=== PATIENT | male | born 1980 | race Caucasian/White ===

== ENCOUNTER 2017-07-31 13:55 | Inpatient (IN) | payer OTHER ==
[2017-07-31 16:09] LABS: BASO # 0.1 K/uL (0.0-0.2); BASO % 0.6 % (0.0-2.0); EOS % 0.1 % (0.0-4.0); HEMOGLOBIN 14.6 g/dL (12.0-18.0); LYMPH # 1.9 K/uL (1.0-4.3); LYMPH % 17.8 % (20.0-40.0); MEAN CELL VOLUME 87.9 fL (80.0-94.0); MEAN CORPUSCULAR HGB CONC 34.2 g/dL (33.0-37.0); MEAN PLATELET VOLUME 7.7 fL (7.2-11.7); MONO # 0.5 K/uL (0.0-0.8); MONO % 4.4 % (0.0-10.0); NEUT % 77.1 % (50.0-75.0); NRBC % 0.1 % (0.0-2.0); RBC 4.85 Mil/uL (4.40-5.90); RED CELL DISTRIBUTION WIDTH 13.6 % (11.5-14.5); WHITE BLOOD COUNT 10.4 K/uL (4.8-10.8)
[2017-07-31 16:26] LABS: ALB/GLOB RATIO 1.4 (1.0-2.1); ALBUMIN 4.6 g/dL (3.5-5.0); ALT/SGPT 136 U/L (21-72); AST/SGOT 213 U/L (17-59); BLOOD UREA NITROGEN 12 mg/dL (9-20); CALCIUM 8.5 mg/dl (8.6-10.4); GFR AFRICAN-AMERICAN > 60; GFR NON-AFRICAN AMERICAN > 60; LIPASE 817 U/L (23-300)
[2017-07-31] MEDS ORDERED: Iodixanol 320 MG/ML 100 ML BOTTLE IV ONE (18:04)
--- NOTE | 2017-07-31 18:11 | C.PDOC ---
History Of Present Illness 36 y/o male with h/o pancreatitis presents to ED with c/o abdominal pain for 2 weeks associated with vomiting. Also reports headache, denies trauma. Admits to drinking daily- 1 pint a day. Denies dysuria, fever, chest pain, sob, or change in sensation. Time Seen by Provider: 07/31/17 14:53 Chief Complaint (Nursing): Substance Abuse History Per: Patient History/Exam Limitations: no limitations Onset/Duration Of Symptoms: Days Current Symptoms Are (Timing): Still Present Suicide/Self Injury Attempted (Context): None Modifying Factor(s): Alcohol Past Medical History Reviewed: Historical Data, Nursing Documentation, Vital Signs Vital Signs: Last Vital Signs Temp 98.2 F 08/02/17 04:37 Pulse 76 08/02/17 04:37 Resp 20 08/02/17 04:37 BP 159/87 H 08/02/17 04:37 Pulse Ox 98 08/01/17 23:30 - Medical History PMH: No Chronic Diseases Surgical History: No Surg Hx Family History: States: No Known Family Hx - Social History Hx Alcohol Use: Yes Hx Substance Use: No - Immunization History Hx Tetanus Toxoid Vaccination: No Hx Influenza Vaccination: No Hx Pneumococcal Vaccination: No Review Of Systems Constitutional: Negative for: Fever, Chills Gastrointestinal: Positive for: Nausea, Vomiting, Abdominal Pain. Negative for : Diarrhea Genitourinary: Negative for: Dysuria Skin: Negative for: Rash Physical Exam - Physical Exam Appears: Non-toxic, No Acute Distress Skin: Warm, Dry, No Rash Head: Atraumatic, Normacephalic Eye(s): bilateral: Normal Inspection, EOMI Nose: Normal Oral Mucosa: Moist Neck: Normal ROM, Supple Chest: Symmetrical Cardiovascular: Rhythm Regular Respiratory: Normal Breath Sounds, No Accessory Muscle Use, No Rales, No Rhonchi , No Wheezing Gastrointestinal/Abdominal: Soft, Tenderness (Diffuse), No Guarding, No Rebound Extremity: Normal ROM Neurological/Psych: Oriented x3, Normal Speech, Normal Cognition ED Course And Treatment - Laboratory Results Result Diagrams: 07/31/17 16:04 07/31/17 16:04 O2 Sat by Pulse Oximetry: 98 (RA) Pulse Ox Interpretation: Normal - CT Scan/US CT head w/o contrast Other Rad Studies (CT/US): Read By Radiologist, Radiology Report Reviewed CT/US Interpretation: PROCEDURE: CT HEAD WITHOUT CONTRAST. HISTORY: pain. COMPARISON: None available. TECHNIQUE: Axial computed tomography images were obtained through the head/brain without intravenous contrast. Radiation dose: Total exam DLP = 787.8 mGy-cm. This CT exam was performed using one or more of the following dose reduction techniques: Automated exposure control, adjustment of the mA and/or kV according to patient size, and/or use of iterative reconstruction technique. FINDINGS: HEMORRHAGE: No intracranial hemorrhage. BRAIN: No mass effect or edema. No atrophy or chronic microvascular ischemic changes. VENTRICLES: Unremarkable. No hydrocephalus. CALVARIUM: Unremarkable. PARANASAL SINUSES: Unremarkable as visualized. No significant inflammatory changes. MASTOID AIR CELLS: Unremarkable as visualized. No inflammatory changes. OTHER FINDINGS: None. IMPRESSION: No acute intracranial pathology. CT abd/pelvis Other Rad Studies (CT/US): Read By Radiologist, Radiology Report Reviewed CT/US Interpretation: PROCEDURE: CT Abdomen and Pelvis with contrast. HISTORY : pain. COMPARISON: None. TECHNIQUE: Contrast dose: Right mL Visipaque 320. Radiation dose: Total exam DLP = 233.0 mGy-cm. This CT exam was performed using one or more of the following dose reduction techniques: Automated exposure control, adjustment of the mA and/or kV according to patient size, and/or use of iterative reconstruction technique. FINDINGS: LOWER THORAX : Unremarkable. LIVER: Diffuse hepatic steatosis. No gross lesion or ductal dilatation. GALLBLADDER AND BILE DUCTS: Distended gallbladder without wall thickening. PANCREAS: Unremarkable. No gross lesion or ductal dilatation. SPLEEN: Unremarkable. ADRENALS: Unremarkable. No mass. KIDNEYS AND URETERS: Unremarkable. No hydronephrosis. No solid mass. VASCULATURE: Unremarkable. No aortic aneurysm. BOWEL: Unremarkable. No obstruction. No gross mural thickening. APPENDIX: Normal appendix. PERITONEUM: Unremarkable. No free fluid. No free air. LYMPH NODES: Unremarkable. No enlarged lymph nodes. BLADDER: Unremarkable. REPRODUCTIVE: Unremarkable. BONES: No acute fracture. OTHER FINDINGS: None. IMPRESSION: Please note CT was performed in the excretory phase. Diffuse hepatic steatosis. Distended gallbladder without evidence of thickening. Normal appendix. Progress Note: PO challenge ordered. Pt notes "I cant eat, it hurts. Im vomiting." Upper abdominal tenderness. Case discussed with Dr Fernandez, agreed upon admission. Disposition - Disposition Disposition: HOSPITALIZED Disposition Time: 18:00 Condition: STABLE - Clinical Impression Clinical Impression: Alcohol dependence, Pancreatitis, Intractable abdominal pain - PA / CYBER SYSTEMS OPERATIONS SPECIALIST / Resident Statement MD/DO has reviewed & agrees with the documentation as recorded. - Scribe Statement The provider has reviewed the documentation as recorded by the Alejandro Walker All medical record entries made by the Alejandro were at my direction and personally dictated by me. I have reviewed the chart and agree that the record accurately reflects my personal performance of the history, physical exam, medical decision making, and the department course for this patient. I have also personally directed, reviewed, and agree with the discharge instructions and disposition.
[2017-07-31 18:22] LABS: SQUAMOUS EPITHIAL < 1 /hpf (0-5); URINE BACTERIA RARE (<OCC); URINE BILIRUBIN NEGATIVE (NEGATIVE); URINE BLOOD 2+ (NEGATIVE); URINE CLARITY Clear (Clear); URINE COLOR Yellow (YELLOW); URINE GLUCOSE (UA) NORMAL (Normal); URINE LEUKOCYTE ESTERASE NEG Leu/uL (Negative); URINE PROTEIN 2+ mg/dL (NEGATIVE); URINE UROBILINOGEN NORMAL mg/dL (0.2-1.0)
--- NOTE | 2017-07-31 18:38 | CT ---
PROCEDURE: CT HEAD WITHOUT CONTRAST. HISTORY: pain COMPARISON: None available. TECHNIQUE: Axial computed tomography images were obtained through the head/brain without intravenous contrast. Radiation dose: Total exam DLP = 787.8 mGy-cm. This CT exam was performed using one or more of the following dose reduction techniques: Automated exposure control, adjustment of the mA and/or kV according to patient size, and/or use of iterative reconstruction technique. FINDINGS: HEMORRHAGE: No intracranial hemorrhage. BRAIN: No mass effect or edema. No atrophy or chronic microvascular ischemic changes. VENTRICLES: Unremarkable. No hydrocephalus. CALVARIUM: Unremarkable. PARANASAL SINUSES: Unremarkable as visualized. No significant inflammatory changes. MASTOID AIR CELLS: Unremarkable as visualized. No inflammatory changes. OTHER FINDINGS: None. IMPRESSION: No acute intracranial pathology.
--- NOTE | 2017-07-31 18:54 | CT ---
PROCEDURE: CT Abdomen and Pelvis with contrast HISTORY: pain COMPARISON: None. TECHNIQUE: Contrast dose: Right mL Visipaque 320 Radiation dose: Total exam DLP = 233.0 mGy-cm. This CT exam was performed using one or more of the following dose reduction techniques: Automated exposure control, adjustment of the mA and/or kV according to patient size, and/or use of iterative reconstruction technique. FINDINGS: LOWER THORAX: Unremarkable. LIVER: Diffuse hepatic steatosis. No gross lesion or ductal dilatation. GALLBLADDER AND BILE DUCTS: Distended gallbladder without wall thickening. PANCREAS: Unremarkable. No gross lesion or ductal dilatation. SPLEEN: Unremarkable. ADRENALS: Unremarkable. No mass. KIDNEYS AND URETERS: Unremarkable. No hydronephrosis. No solid mass. VASCULATURE: Unremarkable. No aortic aneurysm. BOWEL: Unremarkable. No obstruction. No gross mural thickening. APPENDIX: Normal appendix. PERITONEUM: Unremarkable. No free fluid. No free air. LYMPH NODES: Unremarkable. No enlarged lymph nodes. BLADDER: Unremarkable. REPRODUCTIVE: Unremarkable. BONES: No acute fracture. OTHER FINDINGS: None. IMPRESSION: Please note CT was performed in the excretory phase. Diffuse hepatic steatosis. Distended gallbladder without evidence of thickening. Normal appendix.
[2017-07-31] MEDS ORDERED: Sodium Chloride 0.9% 1,000 ML IV ONE (19:13)
[2017-07-31] MEDS ORDERED: Sodium Chloride 0.9% 1,000 ML ONE (19:25)
[2017-07-31] MEDS: Dextrose 5%/0.45% NS 1,000 ML IV SCH (19:50)
[2017-08-01] MEDS: Dextrose 5%/0.45% NS 1,000 ML IV SCH ×3 (03:11→17:15)
[2017-08-01 07:50] VITALS: RESP 20
[2017-08-01] MEDS: Thiamine 100 mg/ml Inj IM SCH (09:27)
--- NOTE | 2017-08-01 13:16 | PN ---
DATE: 08/01/2017 LOCATION: 669, bed B. SUBJECTIVE: This is a 36-year-old male seen initially for GI consultation on 07/31/2017, re-examined again earlier today with complaint of severe abdominal pain with persistent nausea and dyspepsia. No reported active bleeding. No actual chest pain, palpitation, or significant shortness of breath. No chills or fever. On admission, his initial blood alcohol level was 120. The entire chart is reviewed including but not limited to the most recent lab and radiology study results, current and previous medication list, current and previous medical events. Today's labs showed blood glucose level of 136, and the patient had abnormal liver function tests secondary to alcoholism with elevated serum lipase and amylase level. All the radiology study results seen. PHYSICAL EXAMINATION: GENERAL: A 36-year-old male. VITAL SIGNS: Afebrile, pulse of 78, respiratory rate 20 to 22, blood pressure of 120/84. HEENT: Pale, dry oral mucous membranes. Nonicteric sclerae. LUNGS: A few scattered crepitation. Decreased air entry at bases. HEART: Positive S1 and S2. ABDOMEN: Diffuse tenderness. No mass or organomegaly. No rebound tenderness or guarding. EXTREMITIES: Without significant clubbing, cyanosis, or edema but with mild bilateral hand tremors. No other significant clinical changes. IMPRESSION: 1. Alcoholism. 2. Alcoholic liver disease. 3. Alcohol-induced acute pancreatitis. SUGGESTIONS: 1. Continue current management. 2. MRCP. 3. Hepatitis profile. 4. Ativan IV. 5. Close observation as the patient may go to full DT. 6. We will follow up closely with you, and Neurology consultation to be obtained. 7. Ammonia level. 8. Carafate liquid p.o. 9. Reglan IV. 10. Further recommendation to follow. Jon Salmeron MD
[2017-08-02] MEDS: Dextrose 5%/0.45% NS 1,000 ML IV SCH ×5 (00:30→18:30)
--- NOTE | 2017-08-02 06:24 | CON ---
DATE: 07/31/[address] Salmeron to Dr. Luciana Fernandez. I was called for a GI consultation by the admitting MD. The patient is seen and fully examined on 07/31/2017 as requested by the admitting MD. The entire chart is reviewed including, but not limited to, most recent lab and radiology study results, current and previous medication list, current and previous medical events, allergy to medication list as well as all the available current and previous medical records. Case discussed with the staff at length at the time of the consultation. SUBJECTIVE: This is a 36-year-old male who was admitted to the hospital through the emergency room with a main complaint of severe abdominal pain, recurrent episodes of nausea and vomiting of bile and the gastric contents associated with periods of headache and recent change of bowel movement habit post excessive alcohol intake recently. Questioning the patient furthermore, the patient mentioned traces of old and fresh blood in his vomit at some point. No reported palpitation, chest pain, or significant shortness of breath. PAST MEDICAL HISTORY: Including alcoholism. FAMILY HISTORY: Unknown. SOCIAL HISTORY Possible for excessive alcohol intake and occasional cigarette smoking with tobacco. CURRENT MEDICATIONS: Post-admission medication list reviewed.. ALLERGIES TO MEDICATIONS: UNKNOWN. LABORATORY DATA: Initial blood workup post admission showed thrombocytopenia of 115 with normal SMA-7, but excessive increase of liver function tests and serum lipase and amylase levels, indicative of acute pancreatitis. CAT scan of the abdomen and pelvis showed evidence of diffuse hepatic steatosis with distended gallbladder. PHYSICAL EXAMINATION: GENERAL: A 36-year-old male, awake, alert, oriented, complaining of pain in the left orbital area post fall with some ecchymotic changes and mild tremors of both hands. VITAL SIGNS: The patient is febrile with pulse of 94, respiratory rate 20 to 22, blood pressure 140/94. HEENT: Showed dry oral mucous membrane. Bilateral icteric sclerae. LYMPH NODES: No lymphadenitis or lymphadenopathy. LUNGS: Few scattered mild crepitation with decreased air entry at bases. HEART: Positive S1 and S2 with increased rate. ABDOMEN: Soft with diffuse tenderness. Bowel sounds are present. No mass or organomegaly. No rebound tenderness or guarding. RECTAL: The patient refused. EXTREMITIES: Without significant clubbing, cyanosis, or edematous changes. NEUROLOGIC: No reported new neurological deficits, sensory or motor. IMPRESSION: 1. Acute alcohol-induced pancreatitis. 2. Alcoholism. 3. Liver cirrhosis secondary to alcoholism. 4. Jaundice due to hepatocellular injury by alcoholism. No clear evidence of obstructive jaundice. 3. Reexacerbation of peptic ulcer disease and early stage of hepatic encephalopathy secondary to above. SUGGESTIONS: 1. Agree with your plan. 2. Ammonia level. 3. Ativan IV, observe for possible early stage DTs. 4. CAT scan of the head keeping in mind the patient left orbital trauma recently. 5. Guaiac all the stools daily x3. 6. Lipids profile. 7. Abdominal ultrasound to rule out possible biliary pancreatitis, less likely. 8. Rehydration. 9. If the patient's symptoms continued, then endoscopic evaluation of the upper GI tract when he is more stable clinically to be kept in mind. 10. Reglan IV. 11. Proton pump inhibitors IV. 12. Cancer markers including CEA and alpha-fetoprotein. 13. Hepatitis profile with monospot. 14. Further recommendations to follow. Thank you for letting me participate in your patient's case management. Jon Salmeron MD
[2017-08-02 09:17] LABS: AMYLASE 104 U/L (30-110); LIPASE 301 U/L (23-300)
[2017-08-02] MEDS ORDERED: Pneumococcal 23-Valent Vaccine IM ONE (10:00)
[2017-08-02] MEDS: Thiamine 100 mg/ml Inj IM SCH (10:15)
--- NOTE | 2017-08-02 11:37 | HP ---
HISTORY OF PRESENT ILLNESS: The patient is 36-year-old male who comes with chief complaint abdominal pain, weakness, fatigue, and tiredness. The patient came to the ER, advised admission. PHYSICAL EXAMINATION: GENERAL: The patient is awake, alert, and oriented. VITAL SIGNS: Temperature 98, pulse 90. HEENT: Within normal limits. NECK: Supple. CHEST: Symmetrical. HEART: Regular. ABDOMEN: Soft. EXTREMITIES: No edema. IMPRESSION: The patient suffers from pancreatitis. PLAN: The patient to get bed rest, supportive care. Luciana Fernandez MD
--- NOTE | 2017-08-02 13:31 | PN ---
DATE: 08/02/2017 LOCATION: 668, bed A. SUBJECTIVE: This is a 36-year-old male seen and examined in rounds with intermittent period of severe abdominal pain with generalized weakness and malaise. The patient is still having some episode of nausea with dyspepsia, but no reported active bleeding or vomiting. No chest pain or palpitation today. The entire chart is reviewed including but not limited to most recent lab and radiology study results, current and the previous medication list, current and the previous medical events. Case discussed with the staff at length and today's lab results is still not available. The patient had CAT scan of the head. Official report is seen, indicative of no acute intracranial pathology. PHYSICAL EXAMINATION: GENERAL: A 36-year-old male appeared to be awake, alert, oriented, somewhat restless with mild upper extremity tremors. VITAL SIGNS: Afebrile, pulse of 72, respiratory rate 20 to 22, blood pressure 150/82. HEENT: Showed pale, dry oral mucous membranes with bilateral icteric sclerae. LUNGS: Few scattered crepitation, decreased air entry at bases. HEART: Positive S1 and S2. ABDOMEN: Soft with mild generalized tenderness. No mass or organomegaly. No rebound tenderness or guarding. EXTREMITIES: Without edematous changes or cyanosis. IMPRESSION: 1. Alcoholism. 2. Alcoholic liver disease with abnormal liver function tests. 3. Acute pancreatitis, alcohol induced. 4. Abnormal blood glucose level, most likely secondary to above. SUGGESTIONS: 1. Agree with your plan. 2. Continue current management and Ativan IV p.r.n. only for tremors and watch for possible early stage of DTs. 3. Hepatitis profile. 4. Follow up in serum lipase and amylase level, not available yet. 5. Further recommendation to follow. Jon Salmeron MD
[2017-08-02 17:50] VITALS: O2SAT 99
[2017-08-03] MEDS ORDERED: DiphenhydrAMINE 50 mg/ml Inj IVP STA (00:45)
[2017-08-03] MEDS: Dextrose 5%/0.45% NS 1,000 ML IV SCH ×2 (01:57→07:45)
--- NOTE | 2017-08-03 08:03 | PN ---
DATE: 08/02/2017 SUBJECTIVE: The patient is improving. Start diet. Luciana Fernandez MD
[2017-08-03 08:59] VITALS: BP 134/79; PULSE 76; TEMP 98.3
[2017-08-03] MEDS: Thiamine 100 mg/ml Inj IM SCH (10:00)
[2017-08-03 10:11] LABS: HEPATITIS B SURFACE AG Negative (NEGATIVE)
[2017-08-03 10:16] LABS: HEPATITIS A IGM NEGATIVE (NEGATIVE); HEPATITIS B CORE AB NEGATIVE (NEGATIVE)
[2017-08-03 10:28] LABS: HEPATITIS C ANTIBODY NEGATIVE (NEGATIVE)
--- NOTE | 2017-08-03 11:22 | CP.PCM.PN ---
Subjective - Date & Time of Evaluation Date of Evaluation: 08/03/17 Time of Evaluation: 11:21 - Subjective Subjective: PGY2 Note for Dr. Darling; all management as per dr. darling This patient was seen and examined at [facility] this AM; denies any N/V/D or abdominal pain and is tolerating diet well. Objective - Vital Signs/Intake and Output Vital Signs (last 24 hours): Temp Pulse Resp BP Pulse Ox 98.3 F 76 20 134/79 99 08/03/17 08:58 08/03/17 08:58 08/03/17 08:58 08/03/17 08:58 08/03/17 08:58 Intake and Output: 08/03/17 08/03/17 06:59 18:59 Intake Total 1700 Balance 1700 - Medications Medications: Current Medications Dextrose/Sodium Chloride (Dextrose 5%/0.45% Ns 1000 Ml) 1,000 mls @ 150 mls/hr IV .[id number] [facility] Last Admin: 08/03/17 07:45 Dose: Not Given Lorazepam (Ativan) 2 mg IVP Q4H PRN PRN Reason: Anxiety Last Admin: 08/02/17 00:30 Dose: 2 mg Ondansetron HCl (Zofran Inj) 4 mg IVP Q6 PRN PRN Reason: nausea, vomiting Pantoprazole Sodium (Protonix Inj) 40 mg IVP DAILY [facility] Last Admin: 08/02/17 10:15 Dose: 40 mg Thiamine HCl (Vitamin B1 Inj) 100 mg IM DAILY [facility] Last Admin: 08/02/17 10:15 Dose: 100 mg - Labs Labs: 07/31/17 16:04 07/31/17 16:04 - Constitutional Appears: Well, Non-toxic - Head Exam Head Exam: ATRAUMATIC - Eye Exam Eye Exam: EOMI, Normal appearance, PERRL Pupil Exam: NORMAL ACCOMODATION - ENT Exam ENT Exam: Mucous Membranes Moist - Neck Exam Neck Exam: Full ROM - Respiratory Exam Respiratory Exam: Clear to Ausculation Bilateral, NORMAL BREATHING PATTERN. absent: Rales, Rhonchi, Wheezes - Cardiovascular Exam Cardiovascular Exam: REGULAR RHYTHM, +S1, +S2 - GI/Abdominal Exam GI & Abdominal Exam: Soft, Normal Bowel Sounds. absent: Tenderness - Extremities Exam Extremities Exam: Full ROM. absent: Calf Tenderness - Back Exam Back Exam: NORMAL INSPECTION. absent: CVA tenderness (L), CVA tenderness (R) - Neurological Exam Neurological Exam: Alert, Awake, Normal Gait, Oriented x3 - Psychiatric Exam Psychiatric exam: Normal Affect - Skin Skin Exam: Warm Assessment and Plan - Assessment and Plan (Free Text) Assessment: 36yo M admitted for EtOH induced Pancreatitis EtOH induced pancreatitis -patient has resolved symptoms -advised to start liquid diet and advance slowly to full diet over the course of a few days -abstain from alcohol; f/u with PCP in week for regular f/u as patient does not have pcp Thromboycytopenia; chronic 2/2 to etoh abuse -patient advised to stop with EtOH the patient is stable for d/c as per Dr. darling
[2017-08-03 12:21] LABS: PROTHROMBIN TIME 10.6 SECONDS (9.7-12.2)
--- NOTE | 2017-08-03 17:52 | PN ---
DATE: 08/03/2017 LOCATION: 668, bed A. SUBJECTIVE: This is a 36-year-old male seen and examined in rounds today without significant clinical changes or reported active bleeding. No reported chest pain or palpitation. No reported nausea or vomiting. The patient somewhat tolerated his diet well this morning. Most recent lab results showed normal PT and PTT with increased CEA level to 5.2 with subsequent drop of lipase. Today's lab again did not show any lipase level. PHYSICAL EXAMINATION: GENERAL: This is a 36-year-old male. VITAL SIGNS: Afebrile with pulse of 72, respiratory rate 20 to 22, blood pressure 130/72. HEENT: Showed mildly pale, dry oral mucous membrane. Nonicteric sclera. LUNGS: Few scattered crepitation. Decreased air entry at bases. HEART: Positive S1 and S2. ABDOMEN: Soft. There was mild generalized tenderness. No mass or organomegaly. No rebound tenderness or guarding. RECTAL EXAMINATION: The patient refused. EXTREMITIES: Without significant clubbing or cyanosis, but mild upper extremities tremors. IMPRESSION: 1. Alcoholism. 2. Acute pancreatitis, most likely secondary to alcoholism. 3. Alcoholic liver disease with abnormal liver function test. 4. Hyperglycemia. 5. Elevated carcinoembryonic antigen level that could be secondary to early stage of liver disorders from his alcoholism versus lower gastrointestinal tract occult malignancy. SUGGESTIONS: 1. Agree with your plan. 2. Follow up on hepatitis profile. 3. The patient may need colonoscopy. 4. Further recommendation to follow. Jon Salmeron MD
== END 2017-08-03 13:37 | disposition home or self-care (01) | DRG 439 ==
LOC: C.ER 13:55 → C.9E 19:12 → C.6T 20:30 → OBSVTOIN 08-02 07:17
PROVIDERS: ADMIT Internal Medicine Pulmonary Disease; ATTEND Internal Medicine Pulmonary Disease
DX: K85.20 Alcohol induced acute pancreatitis without necrosis or infection (principal); K27.3 Acute peptic ulcer, site unspecified, without hemorrhage or perforation; F10.288 Alcohol dependence with other alcohol-induced disorder; K70.30 Alcoholic cirrhosis of liver without ascites; Y90.6 Blood alcohol level of 120-199 mg/100 ml; K70.40 Alcoholic hepatic failure without coma

== ENCOUNTER 2018-01-25 19:14 | Emergency (ER) | payer OTHER ==
[2018-01-25 19:27] VITALS: TEMP 98.1
--- NOTE | 2018-01-25 19:54 | C.PDOC ---
History Of Present Illness 37 year old male, with history of alcohol abuse, presents to the ED requesting alcohol detox. Patient has not been prescreened. He denies suicidal/homicidal ideation. Time Seen by Provider: 01/25/18 19:52 Chief Complaint (Nursing): Substance Abuse History Per: Patient History/Exam Limitations: no limitations Onset/Duration Of Symptoms: Hrs Current Symptoms Are (Timing): Still Present Suicide/Self Injury Attempted (Context): None Modifying Factor(s): Alcohol Associated Symptoms: denies: Suicidal Thoughts, Suicidal Plan Involuntary Hold By: None Recent travel outside of the [place]: No Additional History Per: Patient Past Medical History Reviewed: Historical Data, Nursing Documentation, Vital Signs Vital Signs: Last Vital Signs Temp 98.1 F 01/25/18 19:21 Pulse 110 H 01/25/18 19:21 Resp 20 01/25/18 19:21 BP 156/111 H 01/25/18 19:21 Pulse Ox 97 01/25/18 19:21 - Medical History PMH: No Chronic Diseases Surgical History: No Surg Hx - [facility] Procedures APPLICATION OF SPLINT (08/29/05) Family History: States: Unknown Family Hx - Social History Hx Alcohol Use: Yes Hx Substance Use: No - Immunization History Hx Tetanus Toxoid Vaccination: No Hx Influenza Vaccination: No Hx Pneumococcal Vaccination: No Review Of Systems Psych: Positive for: Other (alcohol detox ). Negative for: Suicidal ideation Physical Exam - Physical Exam Appears: Non-toxic, No Acute Distress, Other (thin, male. no apparent distress ) Skin: Normal Color, Warm, Dry Head: Atraumatic, Normacephalic Eye(s): bilateral: Normal Inspection Oral Mucosa: Moist, Other (alcohol on breath ) Neck: Supple Chest: Symmetrical, No Deformity, No Tenderness Cardiovascular: Rhythm Regular Respiratory: No Accessory Muscle Use Extremity: Normal ROM Neurological/Psych: Other (awake, alert and arousable to touch and verbal stimuli ) ED Course And Treatment O2 Sat by Pulse Oximetry: 97 (on RA) Pulse Ox Interpretation: Normal Progress Note: Case dicussed with jet worker. Patient is informed that there are no detox beds available at this time. He will be provided with list of detox center and phone numbers for further inquiry. Medical Decision Making Medical Decision Making: alcoholism, seeking detox domestic dispute with , claims he cannot go home tonight no detox beds avail tonight per Crisis f/u info given. Disposition Doctor Will See Patient In The: Office Counseled Patient/Family Regarding: Studies Performed, Diagnosis - Disposition Referrals: Alcoholics Anonymous [Outside] [employer] [employer] [facility] [Outside] [employer] [facility] [Outside] [facility] [Outside] [facility] [Outside] Disposition: HOME/ ROUTINE Disposition Time: 19:54 Condition: GOOD Additional Instructions: follow-up with the Crisis Humanities Teacher's Recommendations Seek pre-screen Detox as directed avoid alcohol abuse as able Start going to AA meetings regularly. Instructions: Alcohol Use - When Is Drinking a Problem?, Alcohol Abuse and Alcoholism (DC) Forms: [employer] (Guatemalan) - Clinical Impression Clinical Impression: Alcohol dependence - Scribe Statement The provider has reviewed the documentation as recorded by the Scribe (Odilia Graham) Provider Attestation: All medical record entries made by the Scribe were at my direction and personally dictated by me. I have reviewed the chart and agree that the record accurately reflects my personal performance of the history, physical exam, medical decision making, and the department course for this patient. I have also personally directed, reviewed, and agree with the discharge instructions and disposition.
[2018-01-25 20:06] VITALS: BP 140/90; PULSE 80; RESP 14
[2018-01-25 21:55] VITALS: O2SAT 97
== END 2018-01-25 20:17 | disposition home or self-care (01) ==
LOC: C.ER 19:14
DX: F10.20 Alcohol dependence, uncomplicated (principal); Y90.9 Presence of alcohol in blood, level not specified